=== PATIENT | male | born 1970 | race Caucasian/White ===

== ENCOUNTER 2017-12-21 09:39 | Observation (INO) | payer BC ==
--- NOTE | 2017-12-21 10:31 | ED ---
Palpitations / Dysrhythmia - HPI Summary HPI Summary: This patient is a 46 year old M presenting to ED with a chief complaint of SOB, feeling clammy and shaky, and palpitations this morning. He reports that he has had palpitations all his life but it has been occurring more often since 1 week ago, often lasting for 1 minute. The CC is described as intermittent and fluttering and tight in his chest. The patient rates the pain 0/10 in severity. Symptoms aggravated by nothing. Symptoms alleviated by nothing. Patient denies CP. He also realized he did not have breakfast this morning which could mean that his low blood sugar could have caused these sx. PMHx of CAD father 40 yo at his 3rd ND. - History of Current Complaint Chief Complaint: EDDysrhythmPalp Time Seen by Provider: 12/21/17 10:00 Hx Obtained From: Patient Onset/Duration: Sudden Onset, Lasting Hours Severity Currently: None Character: Fluttering Aggravating: Nothing Alleviating: Nothing - Allergy/Home Medications Allergies/Adverse Reactions: Allergies Allergy/AdvReac Type Severity Reaction Status Date / Time No Known Allergies Allergy Verified 12/21/17 09:48 PMH/Surg Hx/FS Hx/Imm Hx Endocrine/Hematology History: Denies: Hx Diabetes Cardiovascular History: Denies: Hx Coronary Artery Disease Infectious Disease History: No Infectious Disease History: Denies: Traveled Outside the [place] in Last 30 Days - Family History Known Family History: Positive: Cardiac Disease - father 40 yo at his 3rd ND - Social History Alcohol Use: None Substance Use Type: Reports: None Smoking Status (MU): Unknown if Ever Smoked Review of Systems Positive: Other - clammy, shaky Positive: Palpitations - fluttering. Negative: Chest Pain Positive: Shortness Of Breath All Other Systems Reviewed And Are Negative: Yes Physical Exam - Summary Physical Exam Summary: GENERAL: Patient is a well-developed and nourished M who is lying comfortable in the stretcher. Patient is not in any acute respiratory distress. HEAD AND FACE: Normocephalic EYES: PERRLA, EOMI x 2. EARS: Hearing grossly intact. MOUTH: Oropharynx within normal limits. NECK: Supple, trachea is midline, no adenopathy, no JVD, no carotid bruit. CHEST: Symmetric, no tenderness at palpation LUNGS: Clear to auscultation bilaterally. No wheezing or crackles. CVS: Regular rate and rhythm, S1 and S2 present, no murmurs or gallops appreciated. ABDOMEN: Soft, non-tender. Bowel sounds are normal. No abdominal abnormal pulsations. EXTREMITIES: Full ROM in all major joints, no edema, no cyanosis or clubbing. NEURO: Alert and oriented x 3. No acute neurological deficits. Speech is normal and follows commands. SKIN: Dry and warm Triage Information Reviewed: Yes Vital Signs On Initial Exam: Initial Vitals Temp Pulse Resp BP Pulse Ox 98.1 F 71 16 139/91 98 12/21/17 09:45 12/21/17 09:45 12/21/17 09:45 12/21/17 09:45 12/21/17 09:45 Vital Signs Reviewed: Yes Diagnostics - Vital Signs Vital Signs Temp Pulse Resp BP Pulse Ox 12/21/17 09:45 98.1 F 71 16 139/91 98 - Laboratory Result Diagrams: 12/21/17 10:32 12/22/17 06:59 Lab Statement: Any lab studies that have been ordered have been reviewed, and results considered in the medical decision making process. - Radiology CXR Radiology Interpretation Completed By: Radiologist - NO ACTIVE CARDIOPULMONARY DISEASE. Dr. Kent has reviewed this radiology report. - EKG 0956 Cardiac Rate: NL - 70 BPM EKG Rhythm: Sinus Rhythm Summary of EKG Findings: L axis deviation and incomplete RBBB. Re-Evaluation - Re-Evaluation First Eval Re-Evaluation Time: 11:13 Comment: Discussed with the patient plan for admission and the patient understands and agrees with this plan. Course/Dx - Course Assessment/Plan: This patient is a 46 year old M presenting to ED with a chief complaint of SOB, felling clammy and shaky, and palpitations this morning. EKG reveals NSR at 70 BPM with L axis deviation and incomplete RBBB. CXR reveals NO ACTIVE CARDIOPULMONARY DISEASE. Case discussed with hospitalist. I discussed results with patient and plan for admission. The patient agrees with this plan. - Diagnoses Provider Diagnoses: Ruled out for myocardial infarction - Physician Notifications Discussed Care Of Patient With: Nevaeh Perez Time Discussed With Above Provider: 11:38 Instructed by Provider To: Admit As Inpatient Discharge - Sign-Out/Discharge Documenting (check all that apply): Patient Departure - admit - Discharge Plan Condition: Good Disposition: ADMITTED TO [facility] - Billing Disposition and Condition Condition: GOOD Disposition: Admitted to [facility] - Attestation Statements Document Initiated by Scribe: Yes Documenting Scribe: Best Regalado Provider For Whom Shireen is Documenting (Include Credential): Jatin Kent MD Scribe Attestation: Best Jessica, scribed for Jatin Kent MD on 12/23/17 at 0357. Scribe Documentation Reviewed: Yes Provider Attestation: The documentation as recorded by the Best smith accurately reflects the service I personally performed and the decisions made by me, Jatin Kent MD
[2017-12-21 10:51] LABS: ABS Basophils 0 10^3/ul (0-0.2); ABS Eosinophils 0.1 10^3/ul (0-0.6); ABS Lymphocytes 1.3 10^3/ul (1.0-4.8); ABS Monocytes 0.5 10^3/ul (0-0.8); ABS Neutrophils 3.3 10^3/ul (1.5-7.7); ABS Nucleated RBC 0 10^3/ul; Hematocrit 46 % (42-52); Hemoglobin 15.9 g/dl (14.0-18.0); Lymphocyte % 24.9 % (25-47); Mean Corpuscular HGB Conc 35 g/dl (31-36); Mean Corpuscular Hemoglobin 32 pg (27-31); Mean Corpuscular Volume 91 fL (80-94); Mean Platelet Volume 9.3 um3 (7.4-10.4); Nucleated Red Blood Cells % 0; Platelet Count 178 10^3/ul (150-450); Red Blood Count 4.98 10^6/ul (4.00-5.40); Red Cell Distribution Width 13 % (10.5-15); White Blood Count 5.2 10^3/ul (3.5-10.8)
[2017-12-21 11:15] LABS: EGFR Non-African American 92.4 (>60)
--- NOTE | 2017-12-21 11:18 | RAD ---
HISTORY: SOB COMPARISONS: None VIEWS: 1: frontal AP view of the chest at 10:42 AM FINDINGS: LINES AND TUBES: None. CARDIOMEDIASTINAL SILHOUETTE: The cardiomediastinal silhouette is normal for portable technique. PLEURA: The costophrenic angles are sharp. No pleural abnormalities are noted. LUNG PARENCHYMA: The lungs are clear. ABDOMEN: The upper abdomen is clear. There is no subphrenic gas. BONES AND SOFT TISSUES: No bone or soft tissue abnormalities are noted. IMPRESSION: NO ACTIVE CARDIOPULMONARY DISEASE.
[2017-12-21] MEDS ORDERED: Ondansetron INJ* 2 MG/ML VIAL IV PRN (13:04)
[2017-12-21] MEDS ORDERED: Al Hydrox/Mg Hydrox/Simet LIQ* 30 ML UDC PO PRN (13:04)
[2017-12-21] MEDS ORDERED: Acetaminophen TAB* 325 MG PO PRN (13:04)
--- NOTE | 2017-12-21 13:35 | PN ---
Hospitalist Progress Note Date of Service: 12/21/17 HOSPITALIST ADDENDUM Case reviewed and d/w Michell Anthony SHOE STITCHER. Mr Grant is a 46yo M with PMH of hypoglycemia and macular degeneration who presented with c/o palpitations described as fluttering and chest tightness, associated with dizziness, diaphoresis. Labs and EKG reviewed. Suspect patient is having episodes of SVT. Will admit for further evaluation and management. I'm in agreement with current management.
--- NOTE | 2017-12-21 17:17 | ECHO ---
Patient: DIANNA ALEGRIA Rec#: [id number] : 1970 Date: 12/21/2017 Age: 46y Height: 175.26 cm / 69.0 in Weight: 74.84 kg / 164.9 lbs Sex: M BSA: 1.9 Room#: ED 6 Admit Date#: 12/21/2017 Type: Inpatient Referring: Michell Anthony Reading: Florentin Moy MD Mechanical Tech: Margot Espino RDCS,RDMS Transthoracic Echocardiogram Indication: Palpitations BP: 133/95 HR: 62 Rhythm: NSR with PVCs Findings History: Previously healthy Technical Comments: The study quality is good. Left Ventricle: The left ventricular chamber size is normal. Global left ventricular wall motion and contractility are within normal limits. The estimated ejection fraction is 55-60%. Normal left ventricular diastolic filling is observed. Left Atrium: The left atrial chamber size is normal. Right Ventricle: The right ventricular chamber size and systolic function are within normal limits. Right Atrium: The right atrial cavity size is normal. Aortic Valve: The aortic valve is trileaflet. Systolic excursion of the aortic valve is normal. There is a trace of aortic regurgitation. There is no evidence of aortic stenosis. Mitral Valve: The mitral valve leaflets appear normal. There is no evidence of mitral regurgitation. There is no evidence of mitral stenosis. Tricuspid Valve: The tricuspid valve leaflets are normal. There is trace tricuspid regurgitation. Unable to estimate the right ventricular systolic pressure. Pulmonic Valve: The pulmonic valve appears normal. There is a trace pulmonic regurgitation. Pericardium: There is no significant pericardial effusion. Aorta: The aortic root appears normal. There is no dilatation of the aortic arch. Pulmonary Artery: The main pulmonary artery is not well visualized. Venous: The inferior vena cava appears normal in size. There is a greater than 50% respiratory change in the inferior vena cava dimension. Summary: There was not any prior study for comparison. Conclusions The left ventricular chamber size is normal. Global left ventricular wall motion and contractility are within normal limits. The estimated ejection fraction is 55-60%. There is a trace of aortic regurgitation. There is trace tricuspid regurgitation. There is a trace pulmonic regurgitation. Measurements Name Value Normal Range RVIDd (AP) 2D 2.7 cm (0.9 - 2.6) RVDdMajor (2D) 3.1 cm (2.2 - 4.4) RAd ISD 4CH 4.7 cm (3.4 - 4.9) RA (A4C)W 3.5 cm (2.9 - 4.6) IVSd (2D) 0.9 cm (0.6 - 1) LVPWd (2D) 1 cm (0.6 - 1) LVIDd (2D) 4.2 cm (3.6 - 5.4) LVIDs (2D) 2.7 cm - LV FS (2D) 35 % (25 - 45) Aortic Annulus 1.9 cm (1.4 - 2.6) Ao root diameter (2D) 3 cm (2.1 - 3.5) Ascending Ao 3.1 cm (2.1 - 3.4) Aortic arch 2.8 cm (1.8 - 3.4) LA dimension (AP) 2D 2.8 cm (2.3 - 3.8) LAd ISD 4CH 4.7 cm (2.9 - 5.3) LA ISD 4CH W 3.3 cm (2.5 - 4.5) Name Value Normal Range LA ESV SP 4CH (A/L) 30.16 ml - LA ESV SP 2CH (A/L) 46.82 ml - LA ESV BP (A/L) 38.67 ml - LA ESV BP (A/L) index 20 ml/m2 - LA ESV SP 4CH (MOD) 28.05 ml - LA ESV SP 2CH (MOD) 42.41 ml - Name Value Normal Range MV E-wave Vmax 0.6 m/sec - MV deceleration time 215 msec - MV A-wave Vmax 0.5 m/sec - MV E:A ratio 1.1 ratio - P. vein S-wave Vmax 0.4 m/sec - P. vein D-wave Vmax 0.4 m/sec - P. vein S:D Vmax ratio 0.8 ratio - P. vein A-wave duration 118 msec - LV septal e' Vmax 0.09 m/sec - LV lateral e' Vmax 0.14 m/sec - LV E:e' septal ratio 7 ratio - LV E:e' lateral ratio 4 ratio - Name Value Normal Range AV Vmax 1.3 m/sec - AV VTI 24 cm - AV peak gradient 7 mmHg - AV mean gradient 3.9 mmHg - LVOT Vmax 0.8 m/sec - LVOT VTI 15 cm - LVOT peak gradient 2.6 mmHg - LVOT mean gradient 1.4 mmHg - VERA Vmax 1 m/sec - Name Value Normal Range RAP 8 mmHg - IVC diameter 1.7 cm - Name Value Normal Range PV Vmax 0.9 m/sec - PV peak gradient 3.2 mmHg -
--- NOTE | 2017-12-21 18:10 | HP ---
HISTORY AND PHYSICAL: DATE OF ADMISSION: 12/21/17 PRIMARY CARE PROVIDER: None. ATTENDING PHYSICIAN: Dr. Nevaeh Dinh * (dictated by Michell Anthony NP). CHIEF COMPLAINT: Heart palpitations. HISTORY OF PRESENT ILLNESS: Mr. Grant is a 46-year-old male with past medical history of hypoglycemia and macular degeneration, who presents to the emergency room today with complaints of worsening heart palpitations. The patient reports that he has had palpitations all his life, though in the past week, the palpitations have been increasing in frequency. He reports the feeling as fluttering and tight and the episodes last 5 to 10 seconds. He often has multiple episodes in a row occurring about a minute apart. This is happening multiple times a day. He denies any actual chest pain during these events. This morning, he had an episode of palpitations and reported feeling shortness of breath, chills, feeling clammy and dizzy and so he presented to the emergency room. He does note that he did not eat breakfast this morning and feels as though some of these symptoms could be attributed to hypoglycemia, as he has a significant history for hypoglycemia, especially when skipping meals. He notes mild hand tremors that he feels have developed recently. He does note occasional heartburn, for which he takes Tums. He last took Tums a couple of days ago. He reports seeing a plodding operator approximately 6 to 8 years ago for cholesterol management and risk reduction due to his significant family history. He states that at that point his cholesterol was normal and he was able to manage with diet. While in the emergency room, Mr. Grant had stable vital signs. He was on sane rn, which did not show any arrhythmias even though he reported feeling some of the palpitations while in the emergency room. He had a negative cardiac workup with a normal EKG and negative troponins. His TSH was also normal and he is not anemic. Because of the concern of significant family history of coronary artery disease, the hospitalists were asked to evaluate for admission. PAST MEDICAL HISTORY: 1. Hypoglycemia. 2. Macular degeneration. PAST SURGICAL HISTORY: None. HOME MEDICATIONS: 1. [place]-3 fish oil 1 cap p.o. daily. 2. Lutein 1 cap p.o. daily. ALLERGIES: No known drug allergies. FAMILY HISTORY: Father had a significant cardiac history, at the age of 40 after 3 MIs. Mother is alive, has an unknown tachycardia condition and Crohn 's disease. Brother is alive and well. His father's siblings all have had either MIs or arrhythmias. Paternal grandmother at the age of 50 of an [place]. SOCIAL HISTORY: The patient denies any tobacco or recreational drug use. He reports occasional alcohol use approximately once per month or less. He works as a computer network engineer. He lives with his significant other and two daughters. He maintains a mostly vegan diet, though does eat fish. The patient 's significant other, Pat, will be his surrogate decision maker in the event he is unable to make his own decisions. REVIEW OF SYSTEMS: An 11-point review of systems was performed and all the pertinent positive and negative findings are in the HPI. All other systems are negative. PHYSICAL EXAMINATION GENERAL: Mr. Grant is a well-developed, well-nourished, middle-aged white male , sitting in bed, in no acute distress. He appears his stated age. VITAL SIGNS: Temp 98.1, heart rate 65, respiratory rate 18, oxygen saturation 98 % on room air, blood pressure 133/55. HEENT: Head is normocephalic and atraumatic. Visual laughlin are grossly intact. Pupils are equal, round, and reactive to light and accommodation. Extraocular movements intact. Oral mucous membranes moist and without lesions. NECK: Full range of motion. Thyroid not palpable. Trachea at midline. No lymphadenopathy. RESPIRATORY: Symmetrical chest expansion. No chest wall deformities. Lungs are clear to auscultation throughout. No rhonchi, wheezes, or rales. CARDIOVASCULAR: Regular rate and rhythm. S1, S2 present. No murmurs, rubs, or gallops. No JVD. No carotid bruits. No tenderness to palpation of the chest wall. ABDOMEN: Soft, nontender to palpation throughout. Bowel sounds normoactive throughout. No bruits appreciated. No hepatosplenomegaly. EXTREMITIES: Skin warm and smooth bilaterally. No edema. No clubbing or cyanosis. Pedal pulses 2+ bilaterally. MUSCULOSKELETAL: Full range motion. No pain or deformities. NEURO: Awake, alert, and oriented x4. Cranial nerves II through XII grossly intact. Moves all extremities. Motor strength is 5/5 in upper and lower extremities bilaterally. SKIN: Grossly intact without lesions. DIAGNOSTIC STUDIES/LAB DATA: WBC 5.2, RBC 4.98, hemoglobin 15.9, hematocrit 46 , platelets 178. INR 0.9, D-dimer less than 200. Sodium 139, potassium 3.9, chloride 103, carbon dioxide 28, BUN 10, creatinine 0.88, lactic acid 1.2, magnesium 1.9. Total bili 1.2. First troponin 0.00, second troponin 0.00. BNP 14. TSH 0.69. Chest x-ray reads as no active cardiopulmonary disease. This was personally reviewed. EKG shows normal sinus rhythm with a rate of 70. No ischemic changes noted. This was personally reviewed. ASSESSMENT AND PLAN: Mr. Grant is a 46-year-old male with past medical history of hypoglycemia and macular degeneration, who presented to the emergency room today with complaints of increasing heart palpitations and has a significant family history for coronary artery disease. The patient will be admitted to observation for: 1. Palpitations. The patient is not anemic. His TSH is within normal limits. I suspect that he may be having short episodes of paroxysmal supraventricular tachycardia. We will monitor him on telemetry overnight. I will repeat an EKG in the morning. I have ordered a transthoracic echocardiogram. He will have an exercise stress test in the morning. I have ordered a lipid panel for the morning as well. 2. Hypoglycemia. The patient's blood sugar in the emergency room was 108. We will monitor his symptoms and we will repeat labs in the morning. 3. Macular degeneration. The patient takes lutein for this. I will hold that at this point, as it is nonformulary and the patient does not have it with him. 4. Fluids, electrolytes, and nutrition: The patient does not need any fluid resuscitation at this time. Electrolytes are within normal limits. I have ordered a regular diet. He will be n.p.o. after midnight for a stress test in the morning. 5. Code status: The patient will be a full code. 6. DVT prophylaxis: According to the DVT Risk Assessment, the patient scores a 1 putting him at low risk. We will use ambulation and SCDs for prophylaxis. TIME SPENT: Approximately 45 minutes were spent on this admission, greater than half of that time spent with the patient and his significant other obtaining my history, performing my physical exam, and reviewing the plan of care. This case has been reviewed with my attending, Dr. Dinh, who is in agreement with the plan of care. MICHELL ANTHONY, SOLAR INSTALLER [id number]/[facility] #: [id number] [facility] COLLEGE HOSPITALArelis
[2017-12-22 07:51] LABS: EGFR Non-African American 84.6 (>60)
[2017-12-22 09:07] VITALS: BP 143/78
--- NOTE | 2017-12-22 12:59 | RAD ---
HISTORY: palpitations, family history COMPARISONS: None TECHNIQUE: A 1 day stress/rest myocardial perfusion study was performed, with exercise stress. The exercise portion was performed using the Mau protocol, for a total METs of 12.8. The stress portion was monitored by Dr. Alarcon. Gated SPECT imaging was performed, with CT-based attenuation correction DOSE: Stress: Technetium 99m tetrofosmin, 25.750 millicuries, injected at 11:24 AM on 12/22/2017 Rest: Technetium 99m tetrofosmin, 10.700 millicuries, injected at 7:05 AM on 12/22/2017 Pharmacologic agent: None FINDINGS: CARDIAC MONITORING: Peak heart rate of 158 bpm, 92% of predicted EF: 63 % TID: 0.91 MOTION: Normal motion, with normal wall thickening. PERFUSION: There are no fixed or reversible perfusion defects. OTHER: None IMPRESSION: NO FIXED OR REVERSIBLE PERFUSION DEFECTS. ASSESSMENT: LOW RISK. Based on imaging criteria from ACC/AHA 2002. Guideline Update for the Management of Patient's with Chronic Stable Angina, table 23. Noninvasive Risk Stratification.
--- NOTE | 2017-12-23 12:24 | DS ---
CC: Dr. Arzola.* DISCHARGE SUMMARY: DATE OF ADMISSION: 12/21/17 DATE OF DISCHARGE: 12/22/17 CHIEF COMPLAINT: Heart palpitations. ATTENDING FOR THIS ADMISSION: Dr. Dinh. MY ATTENDING FOR TODAY: Dr. Mcknight.* (DICTATED BY TRISTIAN GAY, IRENA) PRIMARY CARE PROVIDER: He does not have one. He does state that he would like to go and see Dr. Arzola, as he used to go to that office several years ago , but has not had followup recently. HOSPITAL COURSE: This is a very pleasant 46-year-old male patient with a past medical history significant only for macular degeneration and some hypoglycemia in past that states he came to the emergency department with the report of palpitations. The patient states that he has had palpitations all his life however this week the palpitations were increasing in frequency and becoming a tight feeling in his chest lasting approximately 5 to 10 seconds. The patient felt that it was significant enough to come to the emergency department for evaluation. He was noted to have some PVCs and PACs on telemetry. He was admitted for chest pain, rule out ACS. The patient underwent a stress test today, which was returned as low risk. The patient did have 1 PVC during the rest portion of his stress; however, there was not any findings indicative of acute coronary syndrome or coronary artery disease. I discussed the findings with the patient today, he is going to followup as an outpatient. We did discuss the possibility of a Holter monitor if these events became more frequent , which he could pursue as an outpatient and is agreed to be discharged. DISCHARGE DIAGNOSES: 1. Palpitations and premature ventricular contractions. 2. History of macular degeneration. 3. History of hypoglycemia currently stable. DISCHARGE MEDICATIONS: 1. [place]-3 Fish Oil 1 capsule daily. 2. Lutein vitamins 1 tablet daily. REVIEW OF SYSTEMS: A 10-point review of systems is negative, except as noted in HPI. PHYSICAL EXAMINATION: The patient is alert, in no acute distress. Vital signs are currently blood pressure 143/78, heart rate 78, respiratory rate 18, O2 saturation 100% on room air with temperature of 98.0. HEENT: The patient is atraumatic, normocephalic, PERRLA with nonicteric sclerae. Neck is supple, nontender. No JVD noted. No carotid bruit auscultated. Cardiovascular: S1, S2 present. Rate and rhythm are irregular. No murmurs, gallops, or rubs noted. Regular sinus rhythm on telemetry with infrequent PVCs. Lungs are clear bilaterally to auscultation with no wheezing, rhonchi or rales. Abdomen is soft, nontender, nondistended. Positive bowel sounds in all 4 quadrants. was deferred. Musculoskeletal: There is no clubbing. No cyanosis. No edema. He has +2 distal pulses palpable. Full range of motion, steady gait. Neurologic: Grossly intact with no focalities. Psychiatric: Cooperative and appropriate. LABORATORIES: Please review the H and P from yesterday for lab values. IMAGING: Transthoracic echocardiogram dated 12/21/17 conclusions show left ventricular chamber size is normal. Global left ventricular wall motion and contractility are within normal limits. Estimated EF is 55% to 60%. There is trace aortic regurgitation, trace tricuspid regurgitation, and trace pulmonic regurgitation. Chest x-ray also dated 12/21/17 shows no active cardiopulmonary disease. EKG from today shows regular sinus rhythm possible early repolarization pattern. DISPOSITION: The patient has been discharged to home in stable condition. All questions were answered. The patient states his understanding of these discharge instructions. FOLLOWUPS: The patient was instructed to follow up with Dr. Arzola for primary care. He can also discuss with his primary at that time the utility of having an outpatient Holter monitor, if his palpitations become more frequent. The patient is agreeable to that followup plan. We also discussed things to reduce frequency of the palpitations, caffeine stimulants and the like and some dietary changes, staying hydrated. The patient has also agreed to these recommendations. The patient was discharged in stable condition with no further issues. TRISTIAN GAY NP [id number]/[facility] #: [id number] [facility]
== END 2017-12-22 15:30 | disposition home or self-care (01) ==
LOC: ED 09:39 → MEDTELE 13:04
PROVIDERS: ADMIT Internal Medicine; ATTEND Internal Medicine
DX: R00.2 Palpitations (principal); R06.02 Shortness of breath; Z86.69 Personal history of other diseases of the nervous system and sense organs; Z86.39 Personal history of other endocrine, nutritional and metabolic disease
CPT/HCPCS: 36415; 71045; 78452; 80048; 80053; 80076; 83605; 83735; 83880; 84436; 84443; 84484; 85025; 85379; 85610; 85730; 93005; 93017; 93306; 96374; 96376; 99283; A9502; G0378